=== PATIENT | female | born 1980 | race Caucasian/White ===

== ENCOUNTER 2019-09-10 03:40 | Emergency (ER) | payer OTHER ==
[2019-09-10] MEDS ORDERED: BABY ASPIRIN 81 MG CHEW PO ONE (04:00)
[2019-09-10] MEDS ORDERED: TORAdol 30 mg Injection IV ONE (04:02)
[2019-09-10] MEDS ORDERED: BABY ASPIRIN 81 MG CHEW ONE (04:07)
[2019-09-10] MEDS ORDERED: TORAdol 30 mg Injection ONE (04:08)
--- NOTE | 2019-09-10 04:08 | ERPHSYRPT ---
- History of Present Illness Time Seen by Provider: 09/10/19 03:54 Historian: patient Patient Subjective Stated Complaint: pt states she has been having pain in her lt back and lt scapula area for 3 days. states tonight pain is radiating around to lt side and under lt breast. states difficult to lift lt arm and pain is worse with movement of lt arm and deep breath Triage Nursing Assessment: pt alert and oriented, answers questions approp. pt ambulatory with steady gait noted. respirations nonlabored with lungs cta. skin pink warm and dry. heart rate 66 on monitor, sinus rhythm. peripheral pulses wnl. Physician History: 39 years old female with history of tobacco abuse, chronic back pain presented in the ER with chief complaint of left-sided chest and back pain. Patient report pain started in the left subscapular area with radiation to anterior chest and wraps around the chest for the last 3 days. Continuous without associated shortness of breath but has some increasing pain with movements of forearm and deep breathing. Denies any fever chills or cough. Patient reports pain different than her usual back pain. Timing/Duration: day(s) (3) Activities at Onset: rest Quality: sharpness Location: back Severity of Pain-Max: moderate Severity of Pain-Current: moderate Modifying Factors: Improves With: breathing, movement Associated Symptoms: denies symptoms Prior Chest Pain/Cardiac Workup: no prior chest pain Nitro Today/Relief: no nitro taken today Aspirin Treatment Today: no aspirin today Allergies/Adverse Reactions: No Known Drug Allergies Allergy (Unverified 10/02/14 23:18) Home Medications: Gabapentin [Neurontin] 600 mg PO TID 10/02/14 [History] Levothyroxine Sodium 50 Mcg [Synthroid 50 Mcg] 50 mcg PO DAILY 10/03/14 [ History] Naproxen 500 mg BID PRN 10/03/14 [History] Alprazolam 1 mg [Xanax 1 mg] 1 mg PO BIDPRN PRN 09/10/19 [History] Buprenorphine HCl/Naloxone HCl [Suboxone 8 mg-2 mg Tablet Sl] 1 each SL DAILY [History] [place] Carbonate 300 mg [[place] Carbonate 300 MG] 600 mg PO DAILY [History] Sertraline HCl [Zoloft] 100 mg PO DAILY 09/10/19 [History] Hx Tetanus, Diphtheria Vaccination/Date Given: Yes (2015) Hx Influenza Vaccination/Date Given: No Hx Pneumococcal Vaccination/Date Given: No Immunizations Up to Date: Yes Travel Risk - International Travel If Yes where:: [facility] - Coronavirus Screening Has patient experienced Coronavirus symptoms: No - Review of Systems Constitutional: No Symptoms Eyes: No Symptoms Ears, Nose, & Throat: No Symptoms Respiratory: No Symptoms Cardiac: Chest Pain Abdominal/Gastrointestinal: No Symptoms Genitourinary Symptoms: No Symptoms Musculoskeletal: Back Pain Neurological: No Symptoms Psychological: No Symptoms Endocrine: No Symptoms Hematologic/Lymphatic: No Symptoms Immunological/Allergic: No Symptoms - Past Medical History Pertinent Past Medical History: Yes Cardiac History: High Cholesterol Musculoskeletal History: Other Psycho-Social History: Anxiety, Bipolar, Depression Other Medical History: BACK AND NECK PAIN - Past Surgical History Past Surgical History: Yes Musculoskeletal: Orthopedic Surgery Female Surgical History: Tubal Ligation Other Surgical History: bilat foot surgery - Social History Smoking Status: Current every day smoker How long have you smoked: 15 yrs Exposure to second hand smoke: Yes Drug Use: none Patient Lives Alone: No - Female History Hx Last Menstrual Period: current Hx Now: No - Nursing Vital Signs Nursing Vital Signs: Initial Vital Signs Pulse Rate 66 09/10/19 03:41 Respiratory Rate 18 09/10/19 03:41 Blood Pressure 113/80 09/10/19 03:41 O2 Sat by Pulse Oximetry 100 09/10/19 03:41 Pain Scale Pain Intensity [Left Back] 7 Pain Intensity 8 - Physical Exam General Appearance: no apparent distress Eye Exam: PERRL/EOMI, eyes nml inspection Ears, Nose, Throat Exam: normal ENT inspection, pharynx normal Neck Exam: normal inspection, non-tender, supple, full range of motion Respiratory Exam: normal breath sounds, lungs clear, No respiratory distress Cardiovascular Exam: regular rate/rhythm, normal heart sounds Gastrointestinal/Abdomen Exam: soft, normal bowel sounds, No distention Back Exam: normal inspection Extremity Exam: normal inspection, normal range of motion Neurologic Exam: alert, 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, cooperative, science liaison II-XII nml as tested Skin Exam: normal color SpO2 Interpretation: normal SpO2: 100 O2 Delivery: Room Air - Course Nursing assessment & vital signs reviewed: Yes EKG Interpreted by Me: RATE (65), Sinus Rhythm, NORMAL AXIS, NORMAL INTERVALS, NORMAL QRS Ordered Tests: Medication Summary Discontinued Medications Generic Name Dose Route Start Last Admin Trade Name Freq PRN Reason Stop Dose Admin Acetaminophen 650 mg 09/10/19 06:42 Tylenol 325 Mg PO 10/10/19 06:41 Q4H PRN PRN PAIN AND/OR FEVER Al Hydrox/Mg Hydrox/Simethicone 30 ml 09/10/19 06:42 Maalox Es 30 Ml Unit Dose PO 10/10/19 06:41 Q4H PRN PRN INDIGESTION Aspirin 324 mg 09/10/19 04:00 09/10/19 04:11 Baby Aspirin 81 Mg Chew PO 09/10/19 04:01 324 mg STAT ONE Administration Aspirin Confirm 09/10/19 04:07 Baby Aspirin 81 Mg Chew Administered 09/10/19 04:08 Dose 81 mg .ROUTE .STK-MED ONE Sodium Chloride 1,000 mls @ 999 mls/hr 09/10/19 06:34 09/10/19 06:38 Sodium Chloride 0.9% 1000 Ml IV 09/10/19 07:34 999 mls/hr .Q1H1M STA Administration Sodium Chloride 1,000 mls @ 999 mls/hr 09/10/19 06:35 09/10/19 06:44 Sodium Chloride 0.9% 1000 Ml IV 09/10/19 07:35 Not Given .Q1H1M STA Sodium Chloride Confirm 09/10/19 06:36 Sodium Chloride 0.9% 1000 Ml Administered 09/10/19 06:37 Dose 1,000 mls @ ud .ROUTE .STK-MED ONE Sodium Chloride 1,000 mls @ 125 mls/hr 09/10/19 06:45 Sodium Chloride 0.9% 500 Ml IV 10/10/19 06:44 .Q8H MICHEL Ketorolac Tromethamine 30 mg 09/10/19 04:02 09/10/19 04:12 Toradol 30 Mg Injection IV 09/10/19 04:03 30 mg STAT ONE Administration Ketorolac Tromethamine Confirm 09/10/19 04:08 Toradol 30 Mg Injection Administered 09/10/19 04:09 Dose 30 mg .ROUTE .STK-MED ONE Magnesium Hydroxide 30 - 60 ml 09/10/19 06:42 Milk Of Magnesia 30 Ml PO 10/10/19 06:41 QDP PRN CONSTIPATION Ondansetron HCl 4 mg 09/10/19 06:42 Zofran 4 Mg/2 Ml Vial IV 10/10/19 06:41 Q4H PRN PRN NAUSEA/VOMITING Senna/Docusate Sodium 2 udtab 09/10/19 06:42 Senokot-S Tablet PO 10/10/19 06:41 BID PRN PRN CONSTIPATION Lab/Rad Data: Laboratory Result Diagrams 09/10/19 04:14 09/10/19 04:14 Laboratory Results 09/10/19 09/10/19 09/10/19 Range/Units 07:40 04:40 04:14 WBC (4.0-10.5) K/mm3 RBC (4.1-5.4) M/mm3 Hgb (12.0-16.0) gm/dl Hct (35-47) % MCV (78-100) fl MCH (26-32) pg MCHC (32-36) g/dl RDW (11.5-14.0) % Plt Count (150-450) K/mm3 MPV (7.5-11.0) fl Gran % (36.0-66.0) % Eos # (Auto) (0-0.5) Absolute Lymphs (auto) (1.0-4.6) Absolute Monos (auto) (0.0-1.3) Lymphocytes % (24.0-44.0) % Monocytes % (0.0-12.0) % Eosinophils % (0.00-5.0) % Basophils % (0.0-0.4) % Absolute Granulocytes (1.4-6.9) Basophils # (0-0.4) D-Dimer (215-500) ng/mL Sodium (137-145) mmol/L Potassium (3.5-5.1) mmol/L Chloride (98-107) mmol/L Carbon Dioxide (22-30) mmol/L Anion Gap (5-15) MEQ/L BUN (7-17) mg/dL Creatinine (0.52-1.04) mg/dL Estimated GFR ML/MIN Glucose (74-106) mg/dL Calcium (8.4-10.2) mg/dL Total Bilirubin (0.2-1.3) mg/dL AST (14-36) U/L ALT (0-35) U/L Alkaline Phosphatase (38-126) U/L Troponin I 0.014 < 0.012 (0.000-0.034) ng/mL NT-Pro-B Natriuret Pep (0-450) pg/mL Serum Total Protein (6.3-8.2) g/dL Albumin (3.5-5.0) g/dL Urine HCG, Qual NEGATIVE (Negative) 09/10/19 09/10/19 09/10/19 Range/Units 04:14 04:14 04:14 WBC 6.6 (4.0-10.5) K/mm3 RBC 4.71 (4.1-5.4) M/mm3 Hgb 13.7 (12.0-16.0) gm/dl Hct 42.6 (35-47) % MCV 90.4 (78-100) fl MCH 29.1 (26-32) pg MCHC 32.2 (32-36) g/dl RDW 13.4 (11.5-14.0) % Plt Count 202 (150-450) K/mm3 MPV 11.1 H (7.5-11.0) fl Gran % 43.1 (36.0-66.0) % Eos # (Auto) 0.40 (0-0.5) Absolute Lymphs (auto) 2.86 (1.0-4.6) Absolute Monos (auto) 0.47 (0.0-1.3) Lymphocytes % 43.4 (24.0-44.0) % Monocytes % 7.1 (0.0-12.0) % Eosinophils % 6.1 H (0.00-5.0) % Basophils % 0.3 (0.0-0.4) % Absolute Granulocytes 2.84 (1.4-6.9) Basophils # 0.02 (0-0.4) D-Dimer 866 H* (215-500) ng/mL Sodium 141 (137-145) mmol/L Potassium 4.0 (3.5-5.1) mmol/L Chloride 104 (98-107) mmol/L Carbon Dioxide 29 (22-30) mmol/L Anion Gap 11.9 (5-15) MEQ/L BUN 14 (7-17) mg/dL Creatinine 1.37 H (0.52-1.04) mg/dL Estimated GFR 45.2 ML/MIN Glucose 83 (74-106) mg/dL Calcium 8.6 (8.4-10.2) mg/dL Total Bilirubin 0.30 (0.2-1.3) mg/dL AST 20 (14-36) U/L ALT 11 (0-35) U/L Alkaline Phosphatase 66 (38-126) U/L Troponin I (0.000-0.034) ng/mL NT-Pro-B Natriuret Pep 136 (0-450) pg/mL Serum Total Protein 7.1 (6.3-8.2) g/dL Albumin 3.9 (3.5-5.0) g/dL Urine HCG, Qual (Negative) - Progress Progress: improved, re-examined Air Movement: good Progress Note: 09/10/19 06:46 39 years old is evaluated for left-sided chest pain. EKG showed normal sinus rhythm with no acute ST changes suggesting acute ischemia. Initial troponins are negative. She has mildly elevated d-dimer but patient has acute kidney injury and CTA cannot be done. Patient has chronic back pain and has been taking Suboxone and also taking some NSAIDs as well on a regular basis this could be the reason for her acute kidney injury. She is given IV fluids. VQ scan would be done later. I have discussed with Dr. Maza and patient is being admitted for observation. Blood Culture(s) Obtained: No Antibiotics given: No Discussed with : [place] Will see patient in: hospital (observation) Counseled pt/family regarding: lab results, diagnosis, rad results, smoking cessation - Departure Departure Disposition: Observation Clinical Impression: Chest pain, rule out acute myocardial infarction, TISH (acute kidney injury), Elevated d-dimer Condition: Stable Critical Care Time: No Referrals: YVONNE BOTELLO FNP [Primary Care Provider] -
[2019-09-10 04:26] LABS: Absolute Neutrophil Ct (ANC) 2.84 (1.4-6.9); BASOPHIL % 0.3 % (0.0-0.4); Basophil (Absolute #) 0.02 (0-0.4); Eosinophil % 6.1 % (0.00-5.0); Hematocrit 42.6 % (35-47); Hemoglobin 13.7 gm/dl (12.0-16.0); Lymphocyte (Absolute #) 2.86 (1.0-4.6); Lymphocytes % 43.4 % (24.0-44.0); Mean Cell Volume 90.4 fl (78-100); Mean Corpuscular Hemoglobin 29.1 pg (26-32); Mean Corpuscular Hgb Concent. 32.2 g/dl (32-36); Mean Platelet Volume 11.1 fl (7.5-11.0); Monocyte (Absolute #) 0.47 (0.0-1.3); Monocytes % 7.1 % (0.0-12.0); Neutrophil % 43.1 % (36.0-66.0); Platelet Count 202 K/mm3 (150-450); Red Blood Count 4.71 M/mm3 (4.1-5.4); Red Cell Distribution Width 13.4 % (11.5-14.0); White Blood Count 6.6 K/mm3 (4.0-10.5)
[2019-09-10 04:50] LABS: ALBUMIN 3.9 g/dL (3.5-5.0); ANION GAP 11.9 MEQ/L (5-15); BILIRUBIN,TOTAL 0.3 mg/dL (0.2-1.3); Calcium 8.6 mg/dL (8.4-10.2); Creatinine 1 1.37 mg/dL (0.52-1.04); Total Protein 7.1 g/dL (6.3-8.2)
[2019-09-10] MEDS ORDERED: Sodium Chloride 0.9% 1000 ML 1,000 ML IV STA ×2 (06:34→06:35)
[2019-09-10] MEDS ORDERED: Sodium Chloride 0.9% 1000 ML 1,000 ML ONE (06:36)
[2019-09-10 06:42] VITALS: O2SAT 100
[2019-09-10] MEDS ORDERED: Senokot-S Tablet PO PRN (06:42)
[2019-09-10] MEDS ORDERED: Zofran 4 MG/2 ML VIAL IV PRN (06:42)
[2019-09-10] MEDS ORDERED: MILK OF MAGNESIA 30 ML PO PRN (06:42)
[2019-09-10] MEDS ORDERED: MAALOX ES 30 ML UNIT DOSE PO PRN (06:42)
[2019-09-10] MEDS ORDERED: TYLENOL 325 MG PO PRN (06:42)
[2019-09-10 08:07] VITALS: BP 117/98; PULSE 65
--- NOTE | 2019-09-10 08:45 | XRAY ---
Indication: Chest pain. Comparison: None Portable chest demonstrates normal heart and lungs. Bony thorax intact with minimal levoscoliosis.
== END 2019-09-10 08:09 | disposition left against medical advice (07) ==
LOC: ED 03:40
DX: R07.9 Chest pain, unspecified (principal); R79.89 Other specified abnormal findings of blood chemistry
CPT/HCPCS: 36000; 36415; 71045; 80053; 83880; 84484; 84703; 85025; 85379; 93005; 93041; 94760; 96374; 99284; J1885; A9270-GY

== ENCOUNTER 2021-06-14 16:20 | Emergency (ER) | payer OTHER ==
[2021-06-14] MEDS ORDERED: Sodium Chloride 0.9% 1000 ML 1,000 ML ONE (16:43)
[2021-06-14] MEDS: Sodium Chloride 0.9% 1000 ML 1,000 ML IV SCH (16:49)
[2021-06-14 16:53] LABS: Absolute Neutrophil Ct (ANC) 3.59 (1.4-6.9); Basophil (Absolute #) 0.03 (0-0.4); Eosinophil % 7.6 % (0.00-5.0); Eosinophil (Absolute #) 0.51 (0-0.5); Hematocrit 40.1 % (35-47); Hemoglobin 12.6 gm/dl (12.0-16.0); Lymphocyte (Absolute #) 2.13 (1.0-4.6); Lymphocytes % 31.6 % (24.0-44.0); Mean Cell Volume 88.5 fl (78-100); Mean Corpuscular Hemoglobin 27.8 pg (26-32); Mean Corpuscular Hgb Concent. 31.4 g/dl (32-36); Mean Platelet Volume 11.1 fl (7.5-11.0); Monocyte (Absolute #) 0.48 (0.0-1.3); Monocytes % 7.1 % (0.0-12.0); Neutrophil % 53.3 % (36.0-66.0); Platelet Count 169 K/mm3 (150-450); Red Blood Count 4.53 M/mm3 (4.1-5.4); Red Cell Distribution Width 13.5 % (11.5-14.0); White Blood Count 6.7 K/mm3 (4.0-10.5)
--- NOTE | 2021-06-14 17:06 | ERPHSYRPT ---
- History of Present Illness Time Seen by Provider: 06/14/21 17:30 Source: patient Exam Limitations: no limitations Patient Subjective Stated Complaint: pt here for for problems with left eye, she states has had eye bulging, with blurred and double vision, now in last couple weeks has headaches. Triage Nursing Assessment: pt alert, resp easy, skin w/d/p. has bulging to left eye,tearing,face mask in place Physician History: Patient is a 40-year-old female presents to our ED with complaints of blurred double vision left eye. Patient has been experiencing left eye pain for approximately 1 year. Patient states the pain is gotten worse over the past couple weeks. Patient is now experiencing double and blurred vision coupled with a headache. Her eye has been tearing more than normal. Symptoms are slowly progressive. Symptoms are moderate in intensity. No specific worsening improving factors. Patient states he is otherwise healthy. She denies trauma. No assault. Patient voices no other complaints concerns at this time. Timing/Duration: today Severity: moderate Modifying Factors: Improves With: nothing Associated Symptoms: headaches Allergies/Adverse Reactions: No Known Drug Allergies Allergy (Verified 06/14/21 16:35) Home Medications: Gabapentin [Neurontin] 600 mg PO TID 10/02/14 [History] Levothyroxine Sodium 50 Mcg [Synthroid 50 Mcg] 50 mcg PO DAILY 10/03/14 [History] ALPRAZolam 1 MG [Xanax 1 mg] 1 mg PO BIDPRN PRN 09/10/19 [History] [place] Carbonate 300 mg [[place] Carbonate 300 MG] 600 mg PO DAILY 09/10/19 [History] Sertraline HCl [Zoloft] 100 mg PO DAILY 09/10/19 [History] Quetiapine Fumarate 100 mg [Seroquel 100 MG] 200 mg DAILY 06/14/21 [History] Hx Tetanus, Diphtheria Vaccination/Date Given: Yes (2015) Hx Influenza Vaccination/Date Given: No Hx Pneumococcal Vaccination/Date Given: No Immunizations Up to Date: Yes Travel Risk - International Travel Have you traveled outside of the country in past 3 weeks: No - Coronavirus Screening Are you exhibiting any of the following symptoms?: No Close contact with a COVID-19 positive Pt in past 14-21 Days: No - Vaccine Status Have you recieved a Covid-19 vaccination: No 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 - Vaccination Dates Date of 2cond Vaccination (if applicable): 2020 - Review of Systems Constitutional: No Symptoms, No Fever, No Chills Eyes: No Symptoms Ears, Nose, & Throat: No Symptoms Respiratory: No Symptoms, No Cough, No Dyspnea Cardiac: No Symptoms, No Chest Pain, No Edema, No Syncope Abdominal/Gastrointestinal: No Symptoms, No Abdominal Pain, No Nausea, No Vomiting, No Diarrhea Genitourinary Symptoms: No Symptoms, No Dysuria Musculoskeletal: No Symptoms, No Back Pain, No Neck Pain Skin: No Symptoms, No Rash Neurological: No Symptoms, No Dizziness, No Focal Weakness, No Sensory Changes Psychological: No Symptoms Endocrine: No Symptoms Hematologic/Lymphatic: No Symptoms Immunological/Allergic: No Symptoms All Other Systems: Reviewed and Negative - Past Medical History Pertinent Past Medical History: Yes Cardiac History: High Cholesterol Musculoskeletal History: Other Psycho-Social History: Anxiety, Bipolar, Depression Other Medical History: BACK AND NECK PAIN - Past Surgical History Past Surgical History: Yes Musculoskeletal: Orthopedic Surgery Female Surgical History: Tubal Ligation Other Surgical History: bilat foot surgery - Social History Smoking Status: Current every day smoker How long have you smoked: 15 yrs Exposure to second hand smoke: Yes Drug Use: none Patient Lives Alone: No - Female History Hx Last Menstrual Period: 05/2021 Hx Now: No - Nursing Vital Signs Nursing Vital Signs: Initial Vital Signs Temperature 97.4 F 06/14/21 16:27 Pulse Rate 70 06/14/21 16:27 Respiratory Rate 18 06/14/21 16:27 Blood Pressure 110/50 06/14/21 16:27 Pain Scale Pain Intensity 2 - Physical Exam General Appearance: no apparent distress, alert Eye Exam: PERRL/EOMI, eyes nml inspection, other (Proptosis left eye. Visual acuity is 20/200 left 20/30 right. Pupils are reactive but sluggish on the left. Pupils are normally reactive on the right. Extraocular motion intact bilaterally. Intraocular pressure left 27. Intraocular pressure right 11) Ears, Nose, Throat Exam: normal ENT inspection, TMs normal, pharynx normal, moist mucous membranes Neck Exam: normal inspection, non-tender, supple, full range of motion Respiratory Exam: normal breath sounds, lungs clear, airway intact, No respiratory distress Cardiovascular Exam: regular rate/rhythm, normal heart sounds, normal peripheral pulses Gastrointestinal/Abdomen Exam: soft, normal bowel sounds, No tenderness, No mass Back Exam: normal inspection, normal range of motion, No CVA tenderness, No vertebral tenderness Extremity Exam: normal inspection, normal range of motion, pelvis stable Neurologic Exam: alert, 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, cooperative, normal mood/affect, sensation nml, No motor deficits Skin Exam: normal color, warm, dry, No rash Lymphatic Exam: No adenopathy SpO2 Interpretation: normal SpO2: 96 O2 Delivery: Room Air - Course Nursing assessment & vital signs reviewed: Yes - CT Exams Head CT Interpretation: Tele-radiologist Report (No comps. Normal head with and without contrast exam. There is a 1.8 x 2.3 x 2.4 cm retro-orbital mass. Partial differential for enhancing retroperitoneal mass includes lymphoma, metastatic disease and cavernous hemangioma.) Ordered Tests: Active Orders 24 hr Category Date Time Status IV Insertion STAT Care 06/14/21 16:40 Active Visual Acuity STAT Care 06/14/21 16:28 Active HEAD W/WO CONTRAST [CT] Stat Exams 06/14/21 16:42 Taken CBC W DIFF Stat Lab 06/14/21 16:47 Completed CMP Stat Lab 06/14/21 16:47 Completed HCG,QUALITATIVE URINE Stat Lab 06/14/21 19:43 Completed Medication Summary Generic Name Dose Route Start Last Admin Trade Name Freq PRN Reason Stop Dose Admin Sodium Chloride 1,000 mls @ 100 mls/hr 06/14/21 16:45 06/14/21 16:49 Sodium Chloride 0.9% 1000 Ml IV 07/14/21 16:44 100 mls/hr .Q10H MICHEL Administration Discontinued Medications Generic Name Dose Route Start Last Admin Trade Name Freq PRN Reason Stop Dose Admin Hydromorphone HCl Confirm 06/14/21 18:28 Hydromorphone 1 Mg/1ml Inj 1 Mg/Ml Syringe Administered 06/14/21 18:29 Dose 1 mg .ROUTE .STK-MED ONE Hydromorphone HCl 1 mg 06/14/21 18:44 06/14/21 18:45 Hydromorphone 1 Mg/1ml Inj 1 Mg/Ml Syringe IV 06/14/21 18:45 1 mg STAT ONE Administration Hydromorphone HCl 1 mg 06/14/21 19:54 06/14/21 19:56 Hydromorphone 1 Mg/1ml Inj 1 Mg/Ml Syringe IV 06/14/21 19:55 1 mg STAT ONE Administration Hydromorphone HCl Confirm 06/14/21 19:55 Hydromorphone 1 Mg/1ml Inj 1 Mg/Ml Syringe Administered 06/14/21 19:56 Dose 1 mg .ROUTE .STK-MED ONE Morphine Sulfate 2 mg 06/14/21 17:24 06/14/21 17:27 Morphine Sulfate 2 Mg/Ml Inj IV 06/14/21 17:25 2 mg STAT ONE Administration Morphine Sulfate Confirm 06/14/21 17:25 Morphine Sulfate 2 Mg/Ml Inj Administered 06/14/21 17:26 Dose 2 mg .ROUTE .STK-MED ONE Ondansetron HCl 4 mg 06/14/21 17:25 06/14/21 17:27 Ondansetron Hcl 4 Mg/2 Ml Vial IV 06/14/21 17:26 4 mg STAT ONE Administration Ondansetron HCl Confirm 06/14/21 17:25 Ondansetron Hcl 4 Mg/2 Ml Vial Administered 06/14/21 17:26 Dose 4 mg .ROUTE .STK-MED ONE Lab/Rad Data: Laboratory Result Diagrams 06/14/21 16:47 06/14/21 16:47 Laboratory Results 06/14/21 06/14/21 06/14/21 Range/Units 19:43 16:47 16:47 WBC 6.7 (4.0-10.5) K/mm3 RBC 4.53 (4.1-5.4) M/mm3 Hgb 12.6 (12.0-16.0) gm/dl Hct 40.1 (35-47) % MCV 88.5 (78-100) fl MCH 27.8 (26-32) pg MCHC 31.4 L (32-36) g/dl RDW 13.5 (11.5-14.0) % Plt Count 169 (150-450) K/mm3 MPV 11.1 H (7.5-11.0) fl Gran % 53.3 (36.0-66.0) % Eos # (Auto) 0.51 H (0-0.5) Absolute Lymphs (auto) 2.13 (1.0-4.6) Absolute Monos (auto) 0.48 (0.0-1.3) Lymphocytes % 31.6 (24.0-44.0) % Monocytes % 7.1 (0.0-12.0) % Eosinophils % 7.6 H (0.00-5.0) % Basophils % 0.4 (0.0-0.4) % Absolute Granulocytes 3.59 (1.4-6.9) Basophils # 0.03 (0-0.4) Sodium 139 (137-145) mmol/L Potassium 4.2 (3.5-5.1) mmol/L Chloride 105 (98-107) mmol/L Carbon Dioxide 27 (22-30) mmol/L Anion Gap 10.6 (5-15) MEQ/L BUN 18 H (7-17) mg/dL Creatinine 0.83 (0.52-1.04) mg/dL Estimated GFR > 60.0 ML/MIN Glucose 86 (74-106) mg/dL Calcium 9.0 (8.4-10.2) mg/dL Total Bilirubin 0.40 (0.2-1.3) mg/dL AST 23 (14-36) U/L ALT 14 (0-35) U/L Alkaline Phosphatase 64 (38-126) U/L Serum Total Protein 6.5 (6.3-8.2) g/dL Albumin 3.7 (3.5-5.0) g/dL Urine HCG, Qual NEGATIVE (Negative) - Progress Progress: improved Progress Note: Case discussed with Dr. Duarte neurosurgeon from [facility] who accepts transfer. Because of the slow insidious nature of this condition and emergent lateral canthotomy is not indicated at this time. Patient will be flown via [facility]. Plan of care discussed with patient. She agrees to transfer to [facility] for further evaluation and treatment. Portions of this note were created with voice recognition technology. There may be grammatical, spelling, punctuation or sound alike errors 06/14/21 19:47 Counseled pt/family regarding: lab results, diagnosis, rad results - Departure Departure Disposition: Transfer Clinical Impression: Retro-orbital mass, Elevated IOP, Ocular proptosis Condition: Stable Critical Care Time: No Referrals: NATALY GARCIA [Primary Care Provider] - Follow up/PCP as directed
[2021-06-14 17:11] LABS: ALBUMIN 3.7 g/dL (3.5-5.0); ALKALINE PHOSPHATASE 64 U/L (38-126); ANION GAP 10.6 MEQ/L (5-15); BLOOD UREA NITROGEN 18 mg/dL (7-17); CHLORIDE 105 mmol/L (98-107); Carbon Dioxide 27 mmol/L (22-30); Creatinine 1 0.83 mg/dL (0.52-1.04); EST GLOMERULAR FILTRATION RATE > 60.0 ML/MIN; Glucose 86 mg/dL (74-106); Potassium 4.2 mmol/L (3.5-5.1); SGOT/AST 23 U/L (14-36); SGPT/ALT 14 U/L (0-35); SODIUM 139 mmol/L (137-145); Total Protein 6.5 g/dL (6.3-8.2)
[2021-06-14] MEDS ORDERED: Zofran 4 MG/2 ML VIAL ONE (17:25)
[2021-06-14] MEDS ORDERED: MORPHINE SULFATE 2 MG INJ ONE (17:25)
[2021-06-14] MEDS: MORPHINE SULFATE 2 MG INJ IV ONE (17:27)
[2021-06-14] MEDS: Zofran 4 MG/2 ML VIAL IV ONE (17:27)
[2021-06-14] MEDS ORDERED: Hydromorphone 1 mg/ml Injection ONE ×2 (18:28→19:55)
[2021-06-14] MEDS: Hydromorphone 1 mg/ml Injection IV ONE ×2 (18:45→19:56)
[2021-06-14 20:12] VITALS: BP 120/97; PULSE 72; O2SAT 97
--- NOTE | 2021-06-15 08:55 | XRAY ---
Indication: Left eye proptosis, pain, pressure, and blurred vision. Headache. Multiple contiguous images obtained through the head prior to and following 80 cc Isovue 370 contrast. Comparison: None Left orbit demonstrates a retro-orbital extraconal soft tissue mass in the inferior medial aspect measuring at least 1.8 x 2.3 x 2.4 cm. It demonstrates homogeneous enhancement and effaces the extraocular muscles and globe. Partial differential offered includes cavernous hemangioma, lymphoma, and metastasis. There is bilateral exophthalmus left greater than right without extraocular muscle hypertrophy. Remaining CT head exam demonstrates normal appearing brain parenchyma, ventricles, and bony calvarium. Postcontrast images are negative for abnormal enhancing intra or extra-axial mass. Visualized paranasal sinuses and mastoid air cells are clear. Impression: 1. Left retro-orbital extraconal enhancing soft tissue mass as detailed. Partial differential offered above. 2. Bilateral exophthalmus. 3. Remaining CT head with and without contrast exam is negative.
== END 2021-06-14 20:45 | disposition short-term general hospital (02) ==
LOC: ED 16:20
DX: R93.89 Abnormal findings on diagnostic imaging of other specified body structures (principal); H05.20 Unspecified exophthalmos; H40.052 Ocular hypertension, left eye; H53.2 Diplopia; H53.8 Other visual disturbances; R51.9 Headache, unspecified; E78.5 Hyperlipidemia, unspecified; Z79.899 Other long term (current) drug therapy; Z72.0 Tobacco use
CPT/HCPCS: 36000; 36415; 70470; 80053; 84703; 85025; 96374; 96375; 96376; 99285; J1170; J2270; J2405

== ENCOUNTER 2021-07-31 20:55 | Emergency (ER) | payer OTHER ==
[2021-07-31] MEDS ORDERED: TORAdol 30 mg Injection IM ONE (21:17)
[2021-07-31] MEDS ORDERED: Compazine 10 MG/2 ML IM ONE (21:17)
[2021-07-31] MEDS ORDERED: BENADRYL 50 MG/ML IM ONE (21:18)
[2021-07-31] MEDS ORDERED: BENADRYL 50 MG/ML ONE (21:22)
[2021-07-31] MEDS ORDERED: TORAdol 30 mg Injection ONE (21:22)
[2021-07-31] MEDS ORDERED: Compazine 10 MG/2 ML ONE (21:23)
--- NOTE | 2021-07-31 21:23 | ERPHSYRPT ---
- History of Present Illness Time Seen by Provider: 07/31/21 21:10 Source: patient Exam Limitations: no limitations Patient Subjective Stated Complaint: C/O Migraine that started on Saturday. Describes pain across forehead and behind both eyes. Pain is a dull ache most of the time but does have a sharp intermittent pain at times as well. States she is nauseated and last vomited approx 90 minutes prior to arriving to ED. 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 Triage Nursing Assessment: Patient ambulated back to ED with a slow, steady gait. Patient kept her eyes closed for most of the assessment due to patient indicates that light increases her pain. She is alert and answering questions appropriately. Left pupil slightly smaller than right pupil. PEBBLES MARROQUIN. Physician History: Patient is a 40-year-old white female who presents with a complaint of a migraine headache the headache is bilateral frontal. It is similar to past migraines which have become quite rare for her recently she has severe photophobia nausea and vomiting with it this patient also on July 18 had a tumor removed from behind the left eye which was discovered here in the ER. 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 She is not particularly anxious to have another CT scan so soon. She did see her surgeon 2 days ago and his feeling was that she was doing well. Timing/Duration: day(s) (4), worse Quality: stabbing, throbbing Head Pain Location: frontal Severity of Pain-Max: severe Severity of Pain-Current: severe Recent Head Trauma: occasional headaches Modifying Factors: Improves With: exposure to light, noise Associated Symptoms: nausea/vomiting, sensitive to light Previous symptoms: same symptoms as today Allergies/Adverse Reactions: No Known Drug Allergies Allergy (Verified 07/31/21 21:02) Home Medications: Gabapentin [Neurontin] 600 mg PO TID 10/02/14 [History] Levothyroxine Sodium 50 Mcg [Synthroid 50 Mcg] 50 mcg PO DAILY 10/03/14 [History] ALPRAZolam 1 MG [Xanax 1 mg] 1 mg PO BIDPRN PRN 09/10/19 [History] [place] Carbonate 300 mg [[place] Carbonate 300 MG] 600 mg PO DAILY 09/10/19 [History] Sertraline HCl [Zoloft] 100 mg PO DAILY 09/10/19 [History] Quetiapine Fumarate 100 mg [Seroquel 100 MG] 200 mg DAILY 06/14/21 [History] Hx Tetanus, Diphtheria Vaccination/Date Given: Yes (2015) Hx Influenza Vaccination/Date Given: No Hx Pneumococcal Vaccination/Date Given: No Immunizations Up to Date: Yes Travel Risk - International Travel Have you traveled outside of the country in past 3 weeks: No - Coronavirus Screening Are you exhibiting any of the following symptoms?: Yes Symptoms: Headaches/Body Aches/Fatigue Close contact with a COVID-19 positive Pt in past 14-21 Days: No - Vaccine Status Have you recieved a Covid-19 vaccination: No 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[employer] - Vaccination Dates Date of 2cond Vaccination (if applicable): 2020 - Review of Systems Constitutional: No Fever, No Chills Eyes: Photophobia Ears, Nose, & Throat: No Symptoms Respiratory: No Cough, No Dyspnea Cardiac: No Chest Pain, No Edema, No Syncope Abdominal/Gastrointestinal: Nausea, Vomiting, No Abdominal Pain, No Diarrhea Genitourinary Symptoms: No Dysuria Musculoskeletal: No Back Pain, No Neck Pain Skin: No Rash Neurological: Headache, No Dizziness, No Focal Weakness, No Sensory Changes Psychological: No Symptoms Endocrine: No Symptoms All Other Systems: Reviewed and Negative - Past Medical History Pertinent Past Medical History: Yes Neurological History: Migraines ENT History: Other Cardiac History: High Cholesterol Respiratory History: No Pertinent History Endocrine Medical History: Hypothyroidism Musculoskeletal History: Other GI Medical History: No Pertinent History History: No Pertinent History Psycho-Social History: Anxiety, Bipolar, Depression Female Reproductive Disorders: No Pertinent History Other Medical History: BACK AND NECK PAIN, 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 - Past Surgical History Past Surgical History: Yes Neuro Surgical History: No Pertinent History Cardiac: No Pertinent History Respiratory: No Pertinent History Gastrointestinal: No Pertinent History Genitourinary: No Pertinent History Musculoskeletal: Orthopedic Surgery Female Surgical History: Section, Tubal Ligation Other Surgical History: bilat foot surgery - Social History Smoking Status: Current every day smoker How long have you smoked: 15 yrs Exposure to second hand smoke: No Drug Use: none Patient Lives Alone: No - Female History Hx Last Menstrual Period: "just off of it yesterday" Hx Now: No - Nursing Vital Signs Nursing Vital Signs: Initial Vital Signs Temperature 98.1 F 07/31/21 21:03 Pulse Rate 90 07/31/21 21:03 Respiratory Rate 18 07/31/21 21:03 Blood Pressure 106/77 07/31/21 21:03 O2 Sat by Pulse Oximetry 97 07/31/21 21:03 Pain Scale Pain Intensity 9 - Physical Exam General Appearance: no apparent distress Eye Exam: PERRL/EOMI Ears, Nose, Throat Exam: normal ENT inspection, moist mucous membranes Neck Exam: normal inspection, supple, full range of motion, No meningismus Respiratory Exam: normal breath sounds, lungs clear Cardiovascular Exam: regular rate/rhythm, normal heart sounds Gastrointestinal/Abdominal Exam: soft, No tenderness, No distention Back Exam: normal inspection, normal range of motion Mental Status Exam: alert, 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, 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: normal speech, PERRL, No facial droop Coordination/Gait Exam: normal cerebellar function Motor/Sensory Exam: no motor deficit, no sensory deficit Skin Exam: normal color, warm, dry, No rash SpO2 Interpretation: normal SpO2: 97 O2 Delivery: Room Air - Course Nursing assessment & vital signs reviewed: Yes Ordered Tests: Medication Summary Generic Name Dose Route Start Last Admin Trade Name Freq PRN Reason Stop Dose Admin Hydromorphone HCl 1 mg 07/31/21 22:13 Hydromorphone 1 Mg/1ml Inj 1 Mg/Ml Syringe IV 07/31/21 22:14 STAT ONE Discontinued Medications Generic Name Dose Route Start Last Admin Trade Name Frepavithra PRN Reason Stop Dose Admin Diphenhydramine HCl 50 mg 07/31/21 21:18 07/31/21 21:34 Diphenhydramine Hcl 50 Mg/Ml Vial IM 07/31/21 21:19 50 mg STAT ONE Administration Diphenhydramine HCl Confirm 07/31/21 21:22 Diphenhydramine Hcl 50 Mg/Ml Vial Administered 07/31/21 21:23 Dose 50 mg .ROUTE .STK-MED ONE Ketorolac Tromethamine 60 mg 07/31/21 21:17 07/31/21 21:35 Ketorolac Tromethamine 30 Mg/Ml Inj IM 07/31/21 21:18 60 mg STAT ONE Administration Ketorolac Tromethamine Confirm 07/31/21 21:22 Ketorolac Tromethamine 30 Mg/Ml Inj Administered 07/31/21 21:23 Dose 60 mg .ROUTE .STK-MED ONE Prochlorperazine Edisylate 10 mg 07/31/21 21:17 07/31/21 21:35 Prochlorperazine Edisylate 10 Mg/2 Ml Vial IM 07/31/21 21:18 10 mg STAT ONE Administration Prochlorperazine Edisylate Confirm 07/31/21 21:23 Prochlorperazine Edisylate 10 Mg/2 Ml Vial Administered 07/31/21 21:24 Dose 10 mg .ROUTE .STK-MED ONE - Progress Progress: improved Air Movement: good Blood Culture(s) Obtained: No Antibiotics given: No - Departure Departure Disposition: Home Clinical Impression: Migraine headache Condition: Stable Critical Care Time: No Referrals: NATALY GARCIA [Primary Care Provider] - Follow up/PCP as directed Instructions: Headache, Adult (DC)
[2021-07-31] MEDS ORDERED: Hydromorphone 1 mg/ml Injection IV ONE (22:13)
[2021-07-31] MEDS ORDERED: Hydromorphone 1 mg/ml Injection ONE (22:14)
[2021-07-31 23:09] VITALS: BP 108/66; PULSE 75; O2SAT 99
== END 2021-07-31 23:03 | disposition home or self-care (01) ==
LOC: ED 20:55
DX: G43.909 Migraine, unspecified, not intractable, without status migrainosus (principal); R11.2 Nausea with vomiting, unspecified; H53.149 Visual discomfort, unspecified; E78.5 Hyperlipidemia, unspecified; Z72.0 Tobacco use; Z79.899 Other long term (current) drug therapy
CPT/HCPCS: 96372; 99284; J1170; J1200; J1885

== ENCOUNTER 2022-07-29 18:35 | Emergency (ER) | payer OTHER ==
[2022-07-29 18:47] VITALS: O2SAT 99
[2022-07-29] MEDS ORDERED: Ativan 2 MG/1 ML VIAL IM ONE (18:54)
[2022-07-29] MEDS ORDERED: Ativan 2 MG/1 ML VIAL ONE (18:56)
--- NOTE | 2022-07-29 19:00 | ERPHSYRPT ---
- History of Present Illness Time Seen by Provider: 07/29/22 18:54 Source: patient Exam Limitations: no limitations Patient Subjective Stated Complaint: PT states "I have had a horrible year so far, I am so stressed I am having horrible anxiety." Triage Nursing Assessment: Pt presented alert and oriented X 3, skin wpd. Pt ambulates with an upright steady gait, able to speak in clear full sentences pt in no apparet respiratory distress. pt extremely tearful Physician History: PT states "I have had a horrible year so far, I am so stressed I am having horrible anxiety." Timing/Duration: today Severity of Symptoms-Max: moderate Severity of Symptoms-Current: moderate Context related to: recent , living circumstances Associated Symptoms: anxiety, depressed, frustrated, No ingestion Previous symptoms: same symptoms as today Allergies/Adverse Reactions: No Known Drug Allergies Allergy (Verified 07/31/21 21:02) Home Medications: Levothyroxine Sodium 50 Mcg [Synthroid 50 Mcg] 50 mcg PO DAILY 10/03/14 [History] ALPRAZolam 1 MG [Xanax 1 mg] 1 mg PO BIDPRN PRN 09/10/19 [History] [place] Carbonate 300 mg [[place] Carbonate 300 MG] 600 mg PO DAILY 09/10/19 [History] Sertraline HCl [Zoloft] 100 mg PO DAILY 09/10/19 [History] Quetiapine Fumarate 100 mg [Seroquel 100 MG] 200 mg DAILY 06/14/21 [History] Hx Tetanus, Diphtheria Vaccination/Date Given: Yes (2015) Hx Influenza Vaccination/Date Given: No Hx Pneumococcal Vaccination/Date Given: No Immunizations Up to Date: Yes Travel Risk - International Travel Have you traveled outside of the country in past 3 weeks: No - Coronavirus Screening Are you exhibiting any of the following symptoms?: No Close contact with a COVID-19 positive Pt in past 14-21 Days: No - Vaccine Status Have you recieved a Covid-19 vaccination: Yes 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[employer] - Vaccination Dates Date of 2cond Vaccination (if applicable): 2020 - Past Medical History Pertinent Past Medical History: Yes Neurological History: Migraines ENT History: Other Cardiac History: High Cholesterol Respiratory History: No Pertinent History Endocrine Medical History: Hypothyroidism Musculoskeletal History: Other GI Medical History: No Pertinent History History: No Pertinent History Psycho-Social History: Anxiety, Bipolar, Depression Female Reproductive Disorders: No Pertinent History Other Medical History: BACK AND NECK PAIN, 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 - Past Surgical History Past Surgical History: Yes Neuro Surgical History: No Pertinent History Cardiac: No Pertinent History Respiratory: No Pertinent History Gastrointestinal: No Pertinent History Genitourinary: No Pertinent History Musculoskeletal: Orthopedic Surgery Female Surgical History: Section, Tubal Ligation Other Surgical History: bilat foot surgery - Social History Smoking Status: Current every day smoker How long have you smoked: 15 yrs Exposure to second hand smoke: No Drug Use: none Patient Lives Alone: No - Female History Hx Last Menstrual Period: 07/22/2022 Hx Now: No - Review of Systems Constitutional: No Fever, No Chills Eyes: No Symptoms Ears, Nose, & Throat: No Symptoms Respiratory: No Cough, No Dyspnea Cardiac: No Chest Pain, No Edema, No Syncope Abdominal/Gastrointestinal: No Abdominal Pain, No Nausea, No Vomiting, No Diarrhea Genitourinary Symptoms: No Dysuria Musculoskeletal: No Back Pain, No Neck Pain Skin: No Rash Neurological: No Dizziness, No Focal Weakness, No Sensory Changes Psychological: Anxiety, Depression, Emotional Lability, Mood Changes, No Suicidal Ideations, No Homicidal Ideations, No Hallucinations, No Memory Loss Endocrine: No Symptoms All Other Systems: Reviewed and Negative - Nursing Vital Signs Nursing Vital Signs: Initial Vital Signs Temperature 98.3 F 07/29/22 18:41 Pulse Rate 100 H 07/29/22 18:41 Respiratory Rate 20 07/29/22 18:41 Blood Pressure 109/91 07/29/22 18:41 O2 Sat by Pulse Oximetry 99 07/29/22 18:41 Pain Scale Pain Intensity 4 - Physical Exam General Appearance: no apparent distress Eyes, Ears, Nose, Throat Exam: normal ENT inspection, moist mucous membranes Neck Exam: normal inspection, non-tender, supple Respiratory Exam: normal breath sounds, lungs clear, No respiratory distress Cardiovascular Exam: regular rate/rhythm, No edema Gastrointestinal/Abdominal Exam: soft, No tenderness, No distention Extremities Exam: normal inspection, normal range of motion, No evidence of injury, No edema Current Suicidality: denies suicide plan 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, 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, 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 Appearance: appropriate appearance Behavior/Eye Contact/Speech: alert & cooperative Thoughts/Hallucinations: no apparent hallucination Skin Exam: normal color, warm, dry, No rash SpO2 Interpretation: normal SpO2: 99 O2 Delivery: Room Air - Course Nursing assessment & vital signs reviewed: Yes Ordered Tests: Medication Summary Generic Name Dose Route Start Last Admin Trade Name Angy PRN Reason Stop Dose Admin Lorazepam 2 mg 07/29/22 18:54 Lorazepam 2 Mg/1 Ml 2 Mg Vial IM 07/29/22 18:55 STAT ONE - Progress Progress: improved Counseled pt/family regarding: diagnosis, need for follow-up Medical Desision Making - Social Determinants of Health Limited access to: medical care - Diagnostic Testing Diagnostic test were ordered, analyzed, and reviewed by me: No - Risk of complications The pt has a mod risk of morbidity or mortality based on: Need for prescription drug management - Departure Departure Disposition: Home Clinical Impression: Anxiety and depression Condition: Stable Critical Care Time: Yes Critical Care Time(excluding separately billable procedures): Critical 30-74 mins Referrals: GABBY GARCIA [Primary Care Provider] - Follow Up with PCP/3 days Instructions: Anxiety, Adult (DC) Additional Instructions: Discharge/Care Plan DIANA VARELA was seen on 07/29/22 in the Emergency Room. The patient was counseled regarding Diagnosis,Lab results, Imaging studies, need for follow up and when to return to the Emergency Room. Prescriptions given: Discharge Note I have spoken with the patient and/or caregivers. I have explained the patient's condition, diagnosis and treatment plan based on the information available to me at this time. I have answered the patient's and/or caregiver's questions and addressed any concerns. The patient and/or caregivers have as good understanding of the patient's diagnosis, condition and treatment plan as can be expected at this point. The vital signs have been stable. The patient's condition is stable and appropriate for discharge from the emergency department. The patient will pursue further outpatient evaluation with the primary care physician or other designated or consulting physician as outlined in the discharge instructions. The patient and/or caregivers are agreeable to this plan of care and follow-up instructions have been explained in detail. The patient and/or caregivers have received these instruction. The patient/and or caregivers are aware that any significant change in condition or worsening of symptoms should prompt an immediate return to this or the closest emergency department or call 911. DIANA VARELA was seen on 07/29/22 n the Emergency Room. At that time you were treated for an emergent condition, during your visit Laboratory, Radiology and/or other procedures may have been ordered. It is very important that you follow-up with your Primary Care Physician GABBY GARCIA within the next 24-48 hours to review your Emergency Room visit and the final results of testing that was ordered. Some test results such as Urine Cultures, Blood Cultures, and other cultures if ordered will not be finalized for 24-48 hours. If you do not have a Primary Care Provider please call the medical records department at [phone] to obtain a copy of your results or you may sign into our patient portal to obtain these results by visiting us @ [email or web address] and completing the following steps: 1. Click on the Patient Portal link 2. Click the Patient Self Enrollment Link to complete the enrollment form and entering your 3. Once the enrollment form is completed you will receive an email with a temporary ID and password at the email address you provided. 4. Next choose a user name and password. Your user name must be at least 4 characters long and your password must be at least 4 characters long. 5. Choose a security question from the list and provide your answer to the question. If you already have signed into the Health Portal you may access your Health Care Information 10/12 by the following steps: 1. Login to our website @ [email or web address] 2. Enter your original user name and password. FAQS The [facility] Health Portal is an online tool that contains your Lab Results, Radiology Reports, Visit History, Discharge Instructions and Health Summary Lab and Radiology Results will not be available for 72 hours on the portal. The Portal is a secure site, passwords are encryted and URLs are re-written so they cannot be copied and pasted. You and authorized family members are the only ones who can access your Portal. Also there is a timeout feature that protects your information if you leave the Portal page open. If you have technical difficulty please use the Contact Us link on the page this will allow you to submit any questions you have regarding the Portal or you may contact the Medical Record Department at [phone] ext [phone].
[2022-07-29 19:28] VITALS: BP 132/85; PULSE 90
== END 2022-07-29 19:40 | disposition home or self-care (01) ==
LOC: ED 18:35
DX: F41.9 Anxiety disorder, unspecified (principal); F32.A Depression, unspecified; Z75.9 Unspecified problem related to medical facilities and other health care; Z63.4 Disappearance and death of family member; Z59.9 Problem related to housing and economic circumstances, unspecified; E78.5 Hyperlipidemia, unspecified; Z79.899 Other long term (current) drug therapy; Z72.0 Tobacco use
CPT/HCPCS: 96372; 99282; 99291; J2060

== ENCOUNTER 2023-01-09 03:44 | Emergency (ER) | payer OTHER ==
[2023-01-09] MEDS ORDERED: TYLENOL 325 MG PO ONE (04:10)
[2023-01-09] MEDS ORDERED: Sodium Chloride 0.9% 1000 ML 1,000 ML IV STA (04:10)
[2023-01-09] MEDS ORDERED: Zofran 4 MG/2 ML VIAL IV ONE (04:10)
[2023-01-09] MEDS ORDERED: MORPHINE SULFATE 4 MG INJ IV ONE (04:15)
[2023-01-09] MEDS ORDERED: Zofran 4 MG/2 ML VIAL ONE (04:19)
[2023-01-09] MEDS ORDERED: TYLENOL 325 MG ONE (04:19)
[2023-01-09] MEDS ORDERED: Sodium Chloride 0.9% 1000 ML 1,000 ML ONE (04:19)
[2023-01-09] MEDS ORDERED: MORPHINE SULFATE 4 MG INJ ONE (04:29)
[2023-01-09 04:41] LABS: BASOPHIL % 0.4 % (0.0-0.4); Basophil (Absolute #) 0.04 x10^3/uL (0-0.4); Eosinophil % 2.7 % (0.00-5.0); Eosinophil (Absolute #) 0.28 x10^3/uL (0-0.5); Hematocrit 39.6 % (35-47); Hemoglobin 12.5 g/dL (12.0-16.0); IMMATURE GRAN # 0.05 x10^3u/L (0.00-0.03); IMMATURE GRAN % 0.5 % (0.00-0.4); Lymphocytes % 24.4 % (24.0-44.0); Mean Cell Volume 91.7 fL (78-100); Mean Corpuscular Hemoglobin 28.9 pg (26-32); Mean Corpuscular Hgb Concent. 31.6 g/dL (32-36); Mean Platelet Volume 10.7 fL (7.5-11.0); Monocyte (Absolute #) 0.67 x10^3/uL (0.0-1.3); Monocytes % 6.5 % (0.0-12.0); Neutrophil % 65.5 % (36.0-66.0); Platelet Count 299 x10^3/uL (150-450); Red Blood Count 4.32 x10^6/uL (4.1-5.4); Red Cell Distribution Width 12.3 % (11.5-14.0); White Blood Count 10.2 x10^3/uL (4.0-10.5)
[2023-01-09 04:44] LABS: HCG URINE TEST NEGATIVE (NEGATIVE)
[2023-01-09 04:47] LABS: Appearance Cloudy (Clear); Bacteria Rare /HPF (None Seen); Bilirubin Negative (Negative); Blood NHT (Negative); Epithelial Cells Moderate /HPF (None Seen); Glucose, Urine Negative (Negative); Hyaline Casts NONE SEEN /LPF (0-2); Ketones Negative (Negative); Leukocyte Esterase Moderate (Negative); Nitrite Negative (Negative); Ph 6.5 (4.6-8.0); Protein,Urine Dip Negative (Negative); WBC 51-100 /HPF (0-5)
[2023-01-09 04:48] LABS: ADD URINE CULTURE? YES (NO)
[2023-01-09 04:53] LABS: ALBUMIN 3.7 g/dL (3.5-5.0); ALKALINE PHOSPHATASE 76 U/L (38-126); ANION GAP 13.2 MEQ/L (5-15); BLOOD UREA NITROGEN 17 mg/dL (7-17); CHLORIDE 109 mmol/L (98-107); Calcium 8.5 mg/dL (8.4-10.2); Carbon Dioxide 25 mmol/L (22-30); Creatinine 1 0.93 mg/dL (0.52-1.04); EST GLOMERULAR FILTRATION RATE > 60.0 ML/MIN; Glucose 99 mg/dL (74-106); LIPASE 88 U/L (23-300); Potassium 4.1 mmol/L (3.5-5.1); SGOT/AST 21 U/L (14-36); SGPT/ALT 15 U/L (0-35); SODIUM 143 mmol/L (137-145)
[2023-01-09 06:07] VITALS: RESP 20
[2023-01-09] MEDS ORDERED: ROCEPHIN 2 Gm-D5w 50ML BAG** 2 G/50 ML IVPB IV STA (06:09)
[2023-01-09] MEDS ORDERED: ROCEPHIN 2 Gm-D5w 50ML BAG** 2 G/50 ML IVPB IV ONE (06:12)
--- NOTE | 2023-01-09 06:24 | XRAY ---
CLINICAL HISTORY:abd pain, lt flank pain COMPARISON:None TECHNIQUE:Multiple axial sections of CT scan of abdomen and pelvis were carried out without non-ionic IV contrast enhancement. Coronal and Sagittal reformations were also acquired.Total DLP 847.7mGy-cm CTDl 16.9mGY FINDINGS: There is partly obstructing calculus vs stone already in the bladder measuring 3.8 x 3.1 mm with HU of 276 was near the left ureterovesical junction causing proximal minimal to mild hydroureter along with minimal fullness of the pelvicalyceal system. Mild adjacent periureteric fat stranding was also noted. Both kidneys are normal in size. Nonobstructing calculus was noted in the right kidney measuring Up to 3.0 mm noted at interpolar region No evidence of hydronephrosis and right kidney No definite evidence of vesical calculus. Liver is normal in size. No focal mass seen. Intra and extra hepatic biliary ducts are not dilated. Gallbladder appears normal. No evidence of radio-opaque calculus, wall thickening or pericholecystic fluid. Spleen appears normal. No evidence of focal mass seen. Pancreas appears normal. No evidence of mass lesion noted. Both adrenal glands appear normal. No discrete lesion noted. Uterus and bilateral adnexa appear unremarkable. A dominant follicle noted in the right ovary Multiple phleboliths seen in the pelvis Appendix appears normal Small and large bowel loops grossly appear normal. No abnormal wall thickness or dilatation noted. No significant lymphadenopathy was seen. No evidence of ascites or mesenteric fat stranding noted. On appropriate lung window settings, Bilateral basilar atelectatic changes were noted in both lung On bone window settings, Mild degenerative changes were noted in the spine IMPRESSION: 1. A partially obstructing calculus vs already passed stone in the bladder noted near the left ureterovesical junction causing minimal to mild hydroureter along with minimal fullness of pelvicalyceal system. Would recommend clinical correlation 2. Nonobstructing calculus noted in the right kidney 3. Urinary bladder appears unremarkable. 4. Rest of the viscera shows no gross abnormality Electronically Signed by: Danyel Gonsalez MD. (01/09/2023 05:23:25 ENGINEERING WRITER)
--- NOTE | 2023-01-09 06:27 | ERPHSYRPT ---
- History of Present Illness Time Seen by Provider: 01/09/23 04:15 Historian: patient Exam Limitations: no limitations Patient Subjective Stated Complaint: pt states that she has been running a fever for 9 days with last check at 0 being "almost 103". for the last week she also reports that she has had mid lower abd pain that radiates to left lateral side and left flank that continues to get worse. she states that she has been vomiting clear liquid a couple of times per day for a few days. states the pain is constant throbbing with intermittent sharp stabbing pains to "my bladder and my kidneys hurt". states she doesn't have any pain or burning with urination but has been urinating more frequently than normal. Triage Nursing Assessment: pt ambulated to room 6 independently with slow steady gait after providing urine sample for lab testing. pt is bent forward holding lower abd when walking and changes positions in bed. pt is alert and oriented times three, able to speak in complete sentences, able to move all extremities, and with resp even and unlabored. abd soft, slightly distended, tender to palpation, with positive bowel sounds in all quadrants. pt with LBM 01/08/23 and reports it was a normal BM for her. denies sob, difficulty breathing, cp, lightheadedness, dizziness. Physician History: 42 years old female with a history of anxiety/depression presented in the ER with chief complaint of left flank and suprapubic pain along with fever and chills. Patient reports having off-and-on fever for the last 9 days and for almost 1 week having abdominal pain. Reports occasional nausea and vomited couple of times. Had a fever of 103 earlier tonight. Does report increased urinary frequency, dysuria but no urgency or hematuria. Allergies/Adverse Reactions: bee pollen Allergy (Severe, Verified 01/09/23 03:55) Swelling of Tongue and Lips Home Medications: Sertraline HCl [Zoloft] 100 mg PO DAILY 09/10/19 [History] Lorazepam 1 mg [Ativan 1 MG] 1 mg PO UD 01/09/23 [History] Hx Tetanus, Diphtheria Vaccination/Date Given: Yes (2015) Hx Influenza Vaccination/Date Given: No Hx Pneumococcal Vaccination/Date Given: No Immunizations Up to Date: Yes Travel Risk - International Travel Have you traveled outside of the country in past 3 weeks: No - Coronavirus Screening Are you exhibiting any of the following symptoms?: No Close contact with a COVID-19 positive Pt in past 14-21 Days: No - Vaccine Status Have you recieved a Covid-19 vaccination: Yes 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[employer]: [employer] - Vaccination Dates Date of 2cond Vaccination (if applicable): 2020 - Review of Systems Constitutional: Fever, Chills Eyes: No Symptoms Ears, Nose, & Throat: No Symptoms Respiratory: No Symptoms Cardiac: No Symptoms Abdominal/Gastrointestinal: Abdominal Pain, Nausea, Vomiting Genitourinary Symptoms: Dysuria, Frequency Musculoskeletal: Back Pain Skin: No Symptoms Neurological: No Symptoms Endocrine: No Symptoms Hematologic/Lymphatic: No Symptoms Immunological/Allergic: No Symptoms - Past Medical History Pertinent Past Medical History: Yes Neurological History: Migraines ENT History: Other Cardiac History: High Cholesterol Respiratory History: No Pertinent History Endocrine Medical History: Hypothyroidism Musculoskeletal History: Other GI Medical History: No Pertinent History History: No Pertinent History Psycho-Social History: Anxiety, Bipolar, Depression Female Reproductive Disorders: No Pertinent History Other Medical History: BACK AND NECK PAIN, 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 - Past Surgical History Past Surgical History: Yes Neuro Surgical History: No Pertinent History Cardiac: No Pertinent History Respiratory: No Pertinent History Gastrointestinal: No Pertinent History Genitourinary: No Pertinent History Musculoskeletal: Orthopedic Surgery Female Surgical History: Section, Tubal Ligation Other Surgical History: bilat foot surgery - Social History Smoking Status: Current every day smoker How long have you smoked: 15 yrs Exposure to second hand smoke: No Drug Use: none Patient Lives Alone: No - Female History Hx Last Menstrual Period: 01/02/23 Hx Now: No - Nursing Vital Signs Nursing Vital Signs: Initial Vital Signs Temperature 96.6 F 01/09/23 04:00 Pulse Rate 70 01/09/23 04:00 Respiratory Rate 16 01/09/23 04:00 Blood Pressure 90/69 01/09/23 04:00 O2 Sat by Pulse Oximetry 98 01/09/23 04:00 Pain Scale Pain Intensity 6 - Physical Exam General Appearance: no apparent distress, alert Eye Exam: PERRL/EOMI Ears, Nose, Throat Exam: normal ENT inspection Neck Exam: normal inspection, non-tender, supple, full range of motion Respiratory Exam: normal breath sounds, lungs clear Cardiovascular Exam: regular rate/rhythm, normal heart sounds Gastrointestinal/Abdomen Exam: soft, normal bowel sounds, tenderness (Left flank, positive left CVA tenderness), No guarding, No rebound Back Exam: normal inspection, CVA tenderness Extremity Exam: normal inspection, normal range of motion Neurologic Exam: alert, 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, cooperative Skin Exam: normal color SpO2 Interpretation: normal SpO2: 97 O2 Delivery: Room Air Ordered Tests: Medication Summary Discontinued Medications Generic Name Dose Route Start Last Admin Trade Name Angy PRN Reason Stop Dose Admin Acetaminophen 975 mg 01/09/23 04:10 01/09/23 04:22 Acetaminophen 325 Mg Tablet PO 01/09/23 04:11 975 mg STAT ONE Administration Acetaminophen Confirm 01/09/23 04:19 Acetaminophen 325 Mg Tablet Administered 01/09/23 04:20 Dose 975 mg .ROUTE .STK-MED ONE Sodium Chloride 1,000 mls @ 999 mls/hr 01/09/23 04:10 01/09/23 05:35 Sodium Chloride 0.9% 1000 Ml IV 01/09/23 05:10 Infused .Q1H1M STA Infusion Sodium Chloride Confirm 01/09/23 04:19 Sodium Chloride 0.9% 1000 Ml Administered 01/09/23 04:20 Dose 1,000 mls @ ud .ROUTE .STK-MED ONE Ceftriaxone Sodium/Dextrose 2 g in 50 mls @ 100 mls/hr 01/09/23 06:09 01/09/23 06:44 Rocephin 2 Gm-D5w 50ml Bag IV 01/09/23 06:38 Infused STAT STA Infusion Ceftriaxone Sodium/Dextrose Confirm 01/09/23 06:12 Rocephin 2 Gm-D5w 50ml Bag Administered 01/09/23 06:13 Dose 2 g in 50 mls @ ud IV .STK-MED ONE Ketorolac Tromethamine 15 mg 01/09/23 07:48 01/09/23 07:53 Ketorolac Tromethamine 30 Mg/Ml Inj IV 01/09/23 07:49 15 mg STAT ONE Administration Ketorolac Tromethamine Confirm 01/09/23 07:49 Ketorolac Tromethamine 30 Mg/Ml Inj Administered 01/09/23 07:50 Dose 30 mg .ROUTE .STK-MED ONE Morphine Sulfate 4 mg 01/09/23 04:15 01/09/23 04:30 Morphine Sulfate 4 Mg/Ml Injection IV 01/09/23 04:16 4 mg STAT ONE Administration Morphine Sulfate Confirm 01/09/23 04:29 Morphine Sulfate 4 Mg/Ml Injection Administered 01/09/23 04:30 Dose 4 mg .ROUTE .STK-MED ONE Ondansetron HCl 4 mg 01/09/23 04:10 01/09/23 04:23 Ondansetron Hcl 4 Mg/2 Ml Vial IV 01/09/23 04:11 4 mg STAT ONE Administration Ondansetron HCl Confirm 01/09/23 04:19 Ondansetron Hcl 4 Mg/2 Ml Vial Administered 01/09/23 04:20 Dose 4 mg .ROUTE .STK-MED ONE Tamsulosin HCl 0.4 mg 01/09/23 06:30 01/09/23 06:35 Tamsulosin Hcl 0.4 Mg Cap PO 01/09/23 06:31 0.4 mg ONCE STA Administration Tamsulosin HCl Confirm 01/09/23 06:34 Tamsulosin Hcl 0.4 Mg Cap Administered 01/09/23 06:35 Dose 0.4 mg .ROUTE .STK-MED ONE Lab/Rad Data: Laboratory Result Diagrams 01/09/23 04:12 01/09/23 04:12 Laboratory Results 01/09/23 01/09/23 01/09/23 Range/Units 04:12 04:12 04:12 WBC 10.2 (4.0-10.5) x10^3/uL RBC 4.32 (4.1-5.4) x10^6/uL Hgb 12.5 (12.0-16.0) g/dL Hct 39.6 (35-47) % MCV 91.7 (78-100) fL MCH 28.9 (26-32) pg MCHC 31.6 L (32-36) g/dL RDW 12.3 (11.5-14.0) % Plt Count 299 (150-450) x10^3/uL MPV 10.7 (7.5-11.0) fL Gran % 65.5 (36.0-66.0) % Immature Gran % (Auto) 0.5 H (0.00-0.4) % Nucleat RBC Rel Count 0.0 (0.00-0.1) % Eos # (Auto) 0.28 (0-0.5) x10^3/uL Immature Gran # (Auto) 0.05 H (0.00-0.03) x10^3u/L Absolute Lymphs (auto) 2.50 (1.0-4.6) x10^3/uL Absolute Monos (auto) 0.67 (0.0-1.3) x10^3/uL Absolute Nucleated RBC 0.00 (0.00-0.01) x10^3u/L Lymphocytes % 24.4 (24.0-44.0) % Monocytes % 6.5 (0.0-12.0) % Eosinophils % 2.7 (0.00-5.0) % Basophils % 0.4 (0.0-0.4) % Absolute Granulocytes 6.70 (1.4-6.9) x10^3/uL Basophils # 0.04 (0-0.4) x10^3/uL Sodium 143 (137-145) mmol/L Potassium 4.1 (3.5-5.1) mmol/L Chloride 109 H (98-107) mmol/L Carbon Dioxide 25 (22-30) mmol/L Anion Gap 13.2 (5-15) MEQ/L BUN 17 (7-17) mg/dL Creatinine 0.93 (0.52-1.04) mg/dL Estimated GFR > 60.0 ML/MIN Glucose 99 (74-106) mg/dL Calcium 8.5 (8.4-10.2) mg/dL Total Bilirubin 0.30 (0.2-1.3) mg/dL AST 21 (14-36) U/L ALT 15 (0-35) U/L Alkaline Phosphatase 76 (38-126) U/L Serum Total Protein 7.0 (6.3-8.2) g/dL Albumin 3.7 (3.5-5.0) g/dL Lipase 88 (23-300) U/L Urine Color (Yellow) Urine Appearance (Clear) Urine pH (4.6-8.0) Ur Specific [place] (1.005-1.030) Urine Protein (Negative) Urine Glucose (UA) (Negative) mg/dL Urine Ketones (Negative) Urine Blood (Negative) Urine Nitrite (Negative) Urine Bilirubin (Negative) Urine Urobilinogen (0.2) mg/dL Ur Leukocyte Esterase (Negative) U Hyaline Cast (Auto) (0-2) /LPF Urine Microscopic RBC (0-5) /HPF Urine Microscopic WBC (0-5) /HPF Ur Epithelial Cells (None Seen) /HPF Urine Bacteria (None Seen) /HPF Urine Culture Reflexed (NO) Urine HCG, Qual NEGATIVE (NEGATIVE) 01/09/23 Range/Units 04:12 WBC (4.0-10.5) x10^3/uL RBC (4.1-5.4) x10^6/uL Hgb (12.0-16.0) g/dL Hct (35-47) % MCV (78-100) fL MCH (26-32) pg MCHC (32-36) g/dL RDW (11.5-14.0) % Plt Count (150-450) x10^3/uL MPV (7.5-11.0) fL Gran % (36.0-66.0) % Immature Gran % (Auto) (0.00-0.4) % Nucleat RBC Rel Count (0.00-0.1) % Eos # (Auto) (0-0.5) x10^3/uL Immature Gran # (Auto) (0.00-0.03) x10^3u/L Absolute Lymphs (auto) (1.0-4.6) x10^3/uL Absolute Monos (auto) (0.0-1.3) x10^3/uL Absolute Nucleated RBC (0.00-0.01) x10^3u/L Lymphocytes % (24.0-44.0) % Monocytes % (0.0-12.0) % Eosinophils % (0.00-5.0) % Basophils % (0.0-0.4) % Absolute Granulocytes (1.4-6.9) x10^3/uL Basophils # (0-0.4) x10^3/uL Sodium (137-145) mmol/L Potassium (3.5-5.1) mmol/L Chloride (98-107) mmol/L Carbon Dioxide (22-30) mmol/L Anion Gap (5-15) MEQ/L BUN (7-17) mg/dL Creatinine (0.52-1.04) mg/dL Estimated GFR ML/MIN Glucose (74-106) mg/dL Calcium (8.4-10.2) mg/dL Total Bilirubin (0.2-1.3) mg/dL AST (14-36) U/L ALT (0-35) U/L Alkaline Phosphatase (38-126) U/L Serum Total Protein (6.3-8.2) g/dL Albumin (3.5-5.0) g/dL Lipase (23-300) U/L Urine Color Yellow (Yellow) Urine Appearance Cloudy A (Clear) Urine pH 6.5 (4.6-8.0) Ur Specific [place] 1.020 (1.005-1.030) Urine Protein Negative (Negative) Urine Glucose (UA) Negative (Negative) mg/dL Urine Ketones Negative (Negative) Urine Blood NHT (Negative) Urine Nitrite Negative (Negative) Urine Bilirubin Negative (Negative) Urine Urobilinogen 1.0 A (0.2) mg/dL Ur Leukocyte Esterase Moderate A (Negative) U Hyaline Cast (Auto) NONE SEEN (0-2) /LPF Urine Microscopic RBC 3-5 (0-5) /HPF Urine Microscopic WBC 51-100 A (0-5) /HPF Ur Epithelial Cells Moderate A (None Seen) /HPF Urine Bacteria Rare A (None Seen) /HPF Urine Culture Reflexed YES (NO) Urine HCG, Qual (NEGATIVE) - Progress Progress: improved, re-examined Progress Note: 01/09/23 06:23 42 years old female with a history of anxiety/depression presented in the ER with chief complaint of left flank and suprapubic pain along with fever and chills. Patient reports having off-and-on fever for the last 9 days and for almost 1 week having abdominal pain. Reports occasional nausea and vomited couple of times. Had a fever of 103 earlier tonight. Does report increased urinary frequency, dysuria but no urgency or hematuria. Patient is afebrile while in the ER. He is given fluids and symptomatic treatment. On reevaluation much better. No peritoneal signs on repeated exam. Normal white count, fairly unremarkable chemistries, normal lipase. Does have UTI and given a dose of Rocephin. CT abdomen pelvis is obtained which showed partially obstructing left ureteral stone at UVJ versus recently passed stone with mild hydroureter. No pyelonephritis. We will give her Flomax. I have discussed the results of work-up and CT findings with patient, recommended t ransfer to facility with urology services but patient declined and wants to go home. Patient reports she is feeling better. I would continue with antibiotics and outpatient urology follow-up. Discussed signs symptoms of worsening needing return to ER which she seems understanding. 01/09/23 06:29 Counseled pt/family regarding: lab results, diagnosis, need for follow-up, rad results Medical Desision Making - Diagnostic Testing Diagnostic test were ordered, analyzed, and reviewed by me: Yes Radiological Interpretation: Reviewed by me - Risk of complications The pt has a mod risk of morbidity or mortality based on: Need for prescription drug management - Departure Departure Disposition: Home Clinical Impression: Acute UTI, Ureterolithiasis Condition: Stable Critical Care Time: No Referrals: MARIAJOSE DOWLING [Primary Care Provider] - Follow up with PCP 1 day GILBERT LANG [COURTESY STAFF] - Follow up/PCP as directed (Call today for appointment for reevaluation) Instructions: Kidney Stones (DC), Urinary Tract Infection, Adult (DC) Additional Instructions: Follow-up with primary care and urology for reevaluation. Take pain medications only as needed.. Return to ER if again have fever chills, worsening pain, intractable nausea vomiting etc. Prescriptions: Hydrocodone/Acetaminophen [Hydrocodone-Acetamin 5-325 mg] 1 tab PO Q6HPRN PRN 3 Days #10 tablet MDD 4 PRN Reason: Pain Ibuprofen 600 mg PO Q6HPRN PRN 10 Days #20 tablet PRN Reason: Pain Ciprofloxacin [Cipro 500 MG] 500 mg PO BID #14 tablet Tamsulosin HCl 0.4 mg [Flomax 0.4 MG] 0.4 mg PO DAILY #30 cap
[2023-01-09] MEDS ORDERED: Flomax 0.4 MG PO STA (06:30)
[2023-01-09] MEDS ORDERED: Flomax 0.4 MG ONE (06:34)
[2023-01-09 07:43] VITALS: BP 90/42; PULSE 86; TEMP 98.1
[2023-01-09] MEDS ORDERED: TORAdol 30 mg Injection IV ONE (07:48)
[2023-01-09] MEDS ORDERED: TORAdol 30 mg Injection ONE (07:49)
[2023-01-10 17:10] VITALS: O2SAT 97
== END 2023-01-09 08:10 ==
LOC: ED 03:44
DX: N13.2 Hydronephrosis with renal and ureteral calculous obstruction (principal); N39.0 Urinary tract infection, site not specified; R10.2 Pelvic and perineal pain; R10.9 Unspecified abdominal pain; R50.9 Fever, unspecified; R11.2 Nausea with vomiting, unspecified; R30.0 Dysuria; R35.0 Frequency of micturition; E78.5 Hyperlipidemia, unspecified; Z79.891 Long term (current) use of opiate analgesic; Z79.899 Other long term (current) drug therapy; Z72.0 Tobacco use
CPT/HCPCS: 36000; 36415; 74176; 80053; 81001; 81025; 83690; 85025; 87077; 87086; 87186; 96360; 96365; 96374; 96375; 99284; J0696; J1885; J2270; J2405; A9270-GY

== ENCOUNTER 2023-01-10 19:14 | Emergency (ER) | payer OTHER ==
[2023-01-10] MEDS ORDERED: Zofran 4 MG/2 ML VIAL IV ONE (22:46)
[2023-01-10] MEDS ORDERED: Sodium Chloride 0.9% 1000 ML 1,000 ML IV STA (22:46)
[2023-01-10] MEDS ORDERED: TORAdol 30 mg Injection IV ONE (22:46)
[2023-01-10 22:49] VITALS: BP 100/65; PULSE 90; RESP 16; TEMP 98.1; O2SAT 99
[2023-01-10 23:04] LABS: Appearance Cloudy (Clear); Bacteria None Seen /HPF (None Seen); Bilirubin Negative (Negative); Blood Negative (Negative); Epithelial Cells Moderate /HPF (None Seen); Glucose, Urine Negative (Negative); Hyaline Casts NONE SEEN /LPF (0-2); Ketones Negative (Negative); Leukocyte Esterase Moderate (Negative); Nitrite Negative (Negative); Protein,Urine Dip Trace (Negative); RBC 0-2 /HPF (0-5); Specific Gravity 1.025 (1.005-1.030); WBC 21-50 /HPF (0-5)
[2023-01-10] MEDS ORDERED: Sodium Chloride 0.9% 1000 ML 1,000 ML ONE (23:06)
[2023-01-10] MEDS ORDERED: TORAdol 30 mg Injection ONE (23:06)
[2023-01-10] MEDS ORDERED: Zofran 4 MG/2 ML VIAL ONE (23:06)
[2023-01-10 23:10] LABS: ADD URINE CULTURE? YES (NO)
[2023-01-10 23:19] LABS: Trichomonas Few /HPF (None Seen)
--- NOTE | 2023-01-10 23:24 | ERPHSYRPT ---
- History of Present Illness Time Seen by Provider: 01/10/23 19:33 Patient Subjective Stated Complaint: pt states she was diagnosed with uti and kidney stones yesterday. states today pain has cont and she is not able to get comfortable and has stabbing pains in her lt side. Triage Nursing Assessment: pt alert and oriented, answers questions approp. pt ambulates into room with steady gait noted. respirations nonlabored. skin warm and dry. sbd soft. bowel sounds present x4 quads. Physician History: 42 years old female with history of kidney stone/UTI diagnosed yesterday, was started on antibiotics and pain medication presented in the ER with constant pain left side sharp stabbing with associated nausea. Patient denies passing any stone. Subjective feeling of fever and chills Allergies/Adverse Reactions: bee pollen Allergy (Severe, Verified 01/10/23 22:49) Swelling of Tongue and Lips Home Medications: Sertraline HCl [Zoloft] 100 mg PO DAILY 09/10/19 [History] Lorazepam 1 mg [Ativan 1 MG] 1 mg PO UD 01/09/23 [History] Hx Tetanus, Diphtheria Vaccination/Date Given: Yes (2015) Hx Influenza Vaccination/Date Given: No Hx Pneumococcal Vaccination/Date Given: No Travel Risk - International Travel Have you traveled outside of the country in past 3 weeks: No - Coronavirus Screening Are you exhibiting any of the following symptoms?: No Close contact with a COVID-19 positive Pt in past 14-21 Days: No - Vaccine Status Have you recieved a Covid-19 vaccination: Yes [employer]: [employer] - Vaccination Dates Date of 2cond Vaccination (if applicable): 2020 - Past Medical History Pertinent Past Medical History: Yes Neurological History: Migraines ENT History: Other Cardiac History: High Cholesterol Respiratory History: No Pertinent History Endocrine Medical History: Hypothyroidism Musculoskeletal History: Other GI Medical History: No Pertinent History History: No Pertinent History Psycho-Social History: Anxiety, Bipolar, Depression Female Reproductive Disorders: No Pertinent History Other Medical History: BACK AND NECK PAIN, 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 - Past Surgical History Past Surgical History: Yes Neuro Surgical History: No Pertinent History Cardiac: No Pertinent History Respiratory: No Pertinent History Gastrointestinal: No Pertinent History Genitourinary: No Pertinent History Musculoskeletal: Orthopedic Surgery Female Surgical History: Section, Tubal Ligation Other Surgical History: bilat foot surgery - Social History Smoking Status: Current every day smoker How long have you smoked: 15 yrs Exposure to second hand smoke: No Drug Use: none Patient Lives Alone: No - Female History Hx Last Menstrual Period: last week Hx Now: No - Nursing Vital Signs Nursing Vital Signs: Initial Vital Signs Temperature 98.1 F 01/10/23 22:34 Pulse Rate 90 01/10/23 22:34 Respiratory Rate 16 01/10/23 22:34 Blood Pressure 100/65 01/10/23 22:34 O2 Sat by Pulse Oximetry 99 01/10/23 22:34 Pain Scale Pain Intensity 8 - Physical Exam SpO2: 99 Ordered Tests: Medication Summary Discontinued Medications Generic Name Dose Route Start Last Admin Trade Name Freq PRN Reason Stop Dose Admin Sodium Chloride 1,000 mls @ 999 mls/hr 01/10/23 22:46 01/10/23 23:08 Sodium Chloride 0.9% 1000 Ml IV 01/10/23 23:46 999 mls/hr .Q1H1M STA Administration Sodium Chloride Confirm 01/10/23 23:06 Sodium Chloride 0.9% 1000 Ml Administered 01/10/23 23:07 Dose 1,000 mls @ ud .ROUTE .STK-MED ONE Ketorolac Tromethamine 30 mg 01/10/23 22:46 01/10/23 23:07 Ketorolac Tromethamine 30 Mg/Ml Inj IV 01/10/23 22:47 30 mg STAT ONE Administration Ketorolac Tromethamine Confirm 01/10/23 23:06 Ketorolac Tromethamine 30 Mg/Ml Inj Administered 01/10/23 23:07 Dose 30 mg .ROUTE .STK-MED ONE Metronidazole Confirm 01/11/23 01:13 Metronidazole 500 Mg Tablet Administered 01/11/23 01:14 Dose 500 mg .ROUTE .STK-MED ONE Morphine Sulfate Confirm 01/11/23 01:55 Morphine Sulfate 4 Mg/Ml Injection Administered 01/11/23 01:56 Dose 4 mg .ROUTE .STK-MED ONE Ondansetron HCl 4 mg 01/10/23 22:46 01/10/23 23:07 Ondansetron Hcl 4 Mg/2 Ml Vial IV 01/10/23 22:47 4 mg STAT ONE Administration Ondansetron HCl Confirm 01/10/23 23:06 Ondansetron Hcl 4 Mg/2 Ml Vial Administered 01/10/23 23:07 Dose 4 mg .ROUTE .STK-MED ONE Ondansetron HCl Confirm 01/11/23 01:55 Ondansetron Hcl 4 Mg/2 Ml Vial Administered 01/11/23 01:56 Dose 4 mg .ROUTE .STK-MED ONE Lab/Rad Data: Laboratory Result Diagrams 01/10/23 23:40 01/10/23 23:40 Laboratory Results 01/10/23 01/10/23 01/10/23 Range/Units 23:40 23:40 22:40 WBC 7.0 (4.0-10.5) x10^3/uL RBC 3.78 L (4.1-5.4) x10^6/uL Hgb 11.1 L (12.0-16.0) g/dL Hct 35.5 (35-47) % MCV 93.9 (78-100) fL MCH 29.4 (26-32) pg MCHC 31.3 L (32-36) g/dL RDW 12.3 (11.5-14.0) % Plt Count 219 (150-450) x10^3/uL MPV 10.6 (7.5-11.0) fL Gran % 62.2 (36.0-66.0) % Immature Gran % (Auto) 0.3 (0.00-0.4) % Nucleat RBC Rel Count 0.0 (0.00-0.1) % Eos # (Auto) 0.20 (0-0.5) x10^3/uL Immature Gran # (Auto) 0.02 (0.00-0.03) x10^3u/L Absolute Lymphs (auto) 1.98 (1.0-4.6) x10^3/uL Absolute Monos (auto) 0.41 (0.0-1.3) x10^3/uL Absolute Nucleated RBC 0.00 (0.00-0.01) x10^3u/L Lymphocytes % 28.3 (24.0-44.0) % Monocytes % 5.9 (0.0-12.0) % Eosinophils % 2.9 (0.00-5.0) % Basophils % 0.4 (0.0-0.4) % Absolute Granulocytes 4.35 (1.4-6.9) x10^3/uL Basophils # 0.03 (0-0.4) x10^3/uL Sodium 138 (137-145) mmol/L Potassium 4.2 (3.5-5.1) mmol/L Chloride 105 (98-107) mmol/L Carbon Dioxide 26 (22-30) mmol/L Anion Gap 11.7 (5-15) MEQ/L BUN 18 H (7-17) mg/dL Creatinine 0.78 (0.52-1.04) mg/dL Estimated GFR > 60.0 ML/MIN Glucose 87 (74-106) mg/dL Calcium 8.0 L (8.4-10.2) mg/dL Total Bilirubin 0.20 (0.2-1.3) mg/dL AST 19 (14-36) U/L ALT 16 (0-35) U/L Alkaline Phosphatase 93 (38-126) U/L Serum Total Protein 6.2 L (6.3-8.2) g/dL Albumin 3.3 L (3.5-5.0) g/dL Lipase 57 (23-300) U/L Urine Color Yellow (Yellow) Urine Appearance Cloudy A (Clear) Urine pH 7.0 (4.6-8.0) Ur Specific [place] 1.025 (1.005-1.030) Urine Protein Trace A (Negative) Urine Glucose (UA) Negative (Negative) mg/dL Urine Ketones Negative (Negative) Urine Blood Negative (Negative) Urine Nitrite Negative (Negative) Urine Bilirubin Negative (Negative) Urine Urobilinogen 1.0 A (0.2) mg/dL Ur Leukocyte Esterase Moderate A (Negative) U Hyaline Cast (Auto) NONE SEEN (0-2) /LPF Urine Microscopic RBC 0-2 (0-5) /HPF Urine Microscopic WBC 21-50 A (0-5) /HPF Ur Epithelial Cells Moderate A (None Seen) /HPF Urine Bacteria None Seen (None Seen) /HPF Urine Trichomonas Few A (None Seen) /HPF Urine Culture Reflexed YES (NO) - Progress Progress: improved, re-examined Progress Note: 42 years old is evaluated for left side flank pain with history of UTI and stone, was thoroughly evaluated during the last visit with obstructive uropathy, was recommended transfer but patient opted for going home which she was given antibiotic and pain medication and return with increasing pain and subjective feeling of fever and chills. She is given symptomatic treatment with fluids and pain medications, repeated work-up showed white count of 7, no worsening of renal functions and fairly unremarkable chemistries. She is still have UTI. I have repeated CT which showed obstructive stone at left UVJ area. I have recommended transfer to facility with urology services. I have called [facility] we do not have urology services until after 7 AM and [facility] is not accepting urology patients as well. I have called [facility] as well with no available beds. I have recommended transfer to [facility], patient does not want to go beyond [place]. I have discussed with patient is the reason why she cannot be transferred to [facility]. Patient states "I will go on my own". She is not confused or altered at all. She signed AMA paper and walked out of the ER in a stable condition. She is advised to continue with her current medications until she gets medical attention. Discussed signs symptoms of worsening needing return to ER which she seems understanding. Patient was discharged during downtime. Counseled pt/family regarding: lab results, diagnosis, need for follow-up, rad results Medical Desision Making - Diagnostic Testing Diagnostic test were ordered, analyzed, and reviewed by me: Yes Radiological Interpretation: Reviewed by me - Risk of complications The pt has a high risk of morbidity or mortality based on: Decision regarding hospitilization or escalation of hosp level of care - Departure Departure Disposition: AMA Clinical Impression: Obstructive uropathy Condition: Stable Critical Care Time: No Referrals: BILLY SALDIVAR DO [Primary Care Provider] - Follow up/PCP as directed
[2023-01-10 23:46] LABS: Absolute Neutrophil Ct (ANC) 4.35 x10^3/uL (1.4-6.9); BASOPHIL % 0.4 % (0.0-0.4); Basophil (Absolute #) 0.03 x10^3/uL (0-0.4); Eosinophil % 2.9 % (0.00-5.0); Hematocrit 35.5 % (35-47); Hemoglobin 11.1 g/dL (12.0-16.0); IMMATURE GRAN # 0.02 x10^3u/L (0.00-0.03); IMMATURE GRAN % 0.3 % (0.00-0.4); Lymphocyte (Absolute #) 1.98 x10^3/uL (1.0-4.6); Lymphocytes % 28.3 % (24.0-44.0); Mean Cell Volume 93.9 fL (78-100); Mean Corpuscular Hemoglobin 29.4 pg (26-32); Mean Corpuscular Hgb Concent. 31.3 g/dL (32-36); Mean Platelet Volume 10.6 fL (7.5-11.0); Monocyte (Absolute #) 0.41 x10^3/uL (0.0-1.3); Monocytes % 5.9 % (0.0-12.0); Neutrophil % 62.2 % (36.0-66.0); Platelet Count 219 x10^3/uL (150-450); Red Blood Count 3.78 x10^6/uL (4.1-5.4); Red Cell Distribution Width 12.3 % (11.5-14.0)
[2023-01-11 00:10] LABS: ALBUMIN 3.3 g/dL (3.5-5.0); ALKALINE PHOSPHATASE 93 U/L (38-126); ANION GAP 11.7 MEQ/L (5-15); BLOOD UREA NITROGEN 18 mg/dL (7-17); CHLORIDE 105 mmol/L (98-107); Carbon Dioxide 26 mmol/L (22-30); Creatinine 1 0.78 mg/dL (0.52-1.04); EST GLOMERULAR FILTRATION RATE > 60.0 ML/MIN; Glucose 87 mg/dL (74-106); LIPASE 57 U/L (23-300); Potassium 4.2 mmol/L (3.5-5.1); SGOT/AST 19 U/L (14-36); SGPT/ALT 16 U/L (0-35); SODIUM 138 mmol/L (137-145); Total Protein 6.2 g/dL (6.3-8.2)
[2023-01-11] MEDS ORDERED: Flagyl 500 MG ONE (01:13)
[2023-01-11] MEDS ORDERED: Zofran 4 MG/2 ML VIAL ONE (01:55)
[2023-01-11] MEDS ORDERED: MORPHINE SULFATE 4 MG INJ ONE (01:55)
--- NOTE | 2023-01-11 03:46 | XRAY ---
CLINICAL HISTORY:flank pain , obstructive uropathy? COMPARISON:None. TECHNIQUE:CT scan of the abdomen and pelvis was performed without IV contrast. Coronal and sagittal reconstructed images were also obtained. FINDINGS: An obstructing calculus of 4 x 2.5 mm is seen at the left UV junction (250 HU) causing minimal obstructive uropathy proximal to it. No calculus is seen in the left kidney. Non-obstructing calculus of 4.5 x 3.8 mm is seen in the lower pole of the right kidney. No obstructive uropathy on the right side. No cyst, mass on either side. Few phleboliths are seen in the right hemipelvis. Urinary bladder shows normal wall thickness. Uterus and both ovaries appear unremarkable. Liver is normal in size and shape and with regular margins. No focal or diffuse parenchymal abnormality. No hepatic mass is identified. No intra-or extrahepatic biliary dilation. Gallbladder is contracted at the time of the scan. Common bile duct appears normal. Pancreas appears normal. No peripancreatic fat stranding, pancreatic pseudocyst, or peripancreatic fluid collection. Spleen normal in size, no mass seen. Both adrenal glands are unremarkable. Stomach and small bowel loops are unremarkable. Caecum and ileocecal junction appear normal. Appendix is separately visualized and appears normal. Large bowel loops appear normal without evidence of bowel obstruction. Sigmoid and rectum appear normal. No evidence of significant enlargement of the mesenteric or retroperitoneal lymph nodes. In included section of lung bases shows atelectatic changes. Visualized thoracic and lumbar spine appear normal. No lytic or sclerotic bone lesions in visualized bones. IMPRESSION: 1. An obstructing calculus of 4 x 2.5 mm is seen at the left UV junction (250 HU) causing minimal obstructive uropathy proximal to it. 2. No obstructive uropathy on the right side. 3. Non-obstructing calculus of 4.5 x 3.8 mm is seen in the lower pole of the right kidney. Electronically Signed by: Danyel Gonsalez MD. (01/11/2023 00:06:15 [employer])
== END 2023-01-11 02:34 | disposition left against medical advice (07) ==
LOC: ED 19:14
DX: N13.9 Obstructive and reflux uropathy, unspecified (principal); R10.9 Unspecified abdominal pain; R11.0 Nausea; E78.5 Hyperlipidemia, unspecified; Z79.899 Other long term (current) drug therapy; Z72.0 Tobacco use
CPT/HCPCS: 36000; 36415; 74176; 80053; 81001; 83690; 85025; 87086; 96360; 96374; 96375; 99284; J1885; J2270; J2405; A9270-GY